=== PATIENT | female | born 1945 | race Caucasian/White ===

== ENCOUNTER 2016-10-16 21:55 | Emergency (ER) | payer OTHER, BC ==
[~2016-10-16] VITALS: Ht 170.2 cm; Wt 81.8 kg
[~2016-10-16 21:55] MED LIST: ASPIRIN81 M1 PO; BUTALB-APAP-CA1 EACH PO; CYMBALTA60 MG PO; LIPITOR20 MG PO; NADOLOL20 MG PO; PREMPRO 0.451 TABLET PO; TOPIRAMATE100 MG PO; TRIAMTERENE-HC1 EAC1 PO
[2016-10-16 22:58] LABS: HEMATOCRIT 32.4 % (36.0-46.0); MCHC 34.9 G/DL (30.0-36.0); MEAN PLAT.VOLUME 9.4 uM^3 (9.5-12.4); PLATELET COUNT 158 K/uL (156-360); RBC DIS.WIDTH-CV 12.6 % (11.8-14.6); RBC DIS.WIDTH-SD 38.6 % (39-53); RED BLOOD COUNT 3.64 M/uL (3.80-5.20); WHITE BLOOD COUNT 13.9 K/uL (4.1-10.2)
[2016-10-16 23:06] LABS: D-DIMER ELISA 0.87 mg/L FEU (< 0.57)
[2016-10-16 23:07] LABS: CHLORIDE 105 mEq/L (99-109); POTASSIUM 3.1 mEq/L (3.7-5.4); SODIUM 140 mEq/L (136-147)
[2016-10-16 23:09] LABS: GLUCOSE 118 mg/dL (70-99)
[2016-10-16 23:11] LABS: ANION GAP 14 MEQ/L (2-14)
[2016-10-16 23:12] LABS: TOTAL BILIRUBIN 0.3 mg/dL (0.0-1.0)
[2016-10-16 23:13] LABS: ALKALINE PHOSPHATASE 106 IU/L (3-129); GFR ESTIMATE (CALCULATED) > 59 mL/min/
[2016-10-16 23:14] LABS: UREA NITROGEN (BUN) 8 mg/dL (9-23)
[2016-10-16 23:16] LABS: LIPASE 20 U/L (1.0-51.0)
[2016-10-16 23:17] LABS: TROP-I INTERPRETATION NEGATIVE; TROPONIN-I < 0.01 ng/mL (0.0-0.30)
[2016-10-16 23:39] LABS: MAGNESIUM 1.4 mg/dL (1.3-2.7)
[2016-10-17 00:02] LABS: BASOPHIL COUNT 0.1 K/uL (0-0.1); EOSINOPHIL (%) 0.9 % (0-5); EOSINOPHIL COUNT 0.1 K/uL (0-0.3); HEMATOLOGY COMMENT 1 SMEAR COMPATIBLE; IMMATURE GRANULOCYTE (%) 3.4 % (0.0-0.7); IMMATURE GRANULOCYTE COUNT 4.7 K/uL; LYMPHOCYTE COUNT 1.8 K/uL (1.0-2.8); MONOCYTE (%) 3.5 % (3-12); MONOCYTE COUNT 0.5 K/uL (0-0.8)
[2016-10-17 00:20] LABS: ADD MIUA? NO; BILIRUBIN NEGATIVE; BLOOD NEGATIVE; COLOR DK YELLOW ((YELLOW)); GLUCOSE (STRIP) NEGATIVE; KETONES NEGATIVE; LEUKOCYTES NEGATIVE; NITRITE NEGATIVE; PH, URINE 6.5 (5-8); PROTEIN (STRIP) NEGATIVE; SPECIFIC GRAVITY 1.012 (1.000-1.030); UCUL ADDED? NO; UROBILINOGEN 0.2 MG/DL (0.2-1.0)
[2016-10-17] MEDS ORDERED: TRAMADOL HCL50 MG PO (01:40)
[2016-10-17 01:57] VITALS: BP 159/86
== END 2016-10-17 01:58 | disposition home or self-care (01) ==
LOC: EME → EDBD 21:55 → EME 10-17 01:58
PROVIDERS: Emergency Medicine
DX: R10.9 Unspecified abdominal pain (principal); E78.6 Lipoprotein deficiency; G20 Parkinson's disease; C25.9 Malignant neoplasm of pancreas, unspecified; D72.829 Elevated white blood cell count, unspecified; D61.9 Aplastic anemia, unspecified; I10 Essential (primary) hypertension; E78.5 Hyperlipidemia, unspecified; Z92.21 Personal history of antineoplastic chemotherapy; Z95.0 Presence of cardiac pacemaker; Z88.8 Allergy status to other drugs, medicaments and biological substances
CPT/HCPCS: 71010; 71275; 74177; 80053; 81003; 83690; 83735; 83880; 84100; 84484; 85025; 85379; 93005; 99281; 99285; J0515; J1200; J2405; J7030

== ENCOUNTER 2016-12-19 03:54 | Observation (INO) | payer OTHER, BC ==
[~2016-12-19] VITALS: Ht 170.2 cm; Wt 82.0 kg
[~2016-12-19 03:54] MED LIST changes: +TRAMADOL HCL50 MG PO
[2016-12-19 04:41] LABS: HEMATOCRIT 29.9 % (36.0-46.0); MCH 31.3 PG (29.0-34.0); MCHC 33.8 G/DL (30.0-36.0); MCV 92.6 FL (83-99); MEAN PLAT.VOLUME 9.6 uM^3 (9.5-12.4); PLATELET COUNT 219 K/uL (156-360); RBC DIS.WIDTH-CV 15.7 % (11.8-14.6); RBC DIS.WIDTH-SD 53.6 % (39-53); RED BLOOD COUNT 3.23 M/uL (3.80-5.20); WHITE BLOOD COUNT 10.7 K/uL (4.1-10.2)
[2016-12-19 04:56] LABS: CHLORIDE 104 mEq/L (99-109); POTASSIUM 3.1 mEq/L (3.7-5.4); SODIUM 136 mEq/L (136-147)
[2016-12-19 04:58] LABS: GLUCOSE 126 mg/dL (70-99)
[2016-12-19 05:00] LABS: ANION GAP 14 MEQ/L (2-14); TOTAL BILIRUBIN 0.4 mg/dL (0.0-1.0)
[2016-12-19 05:02] LABS: ALKALINE PHOSPHATASE 156 IU/L (3-129); GFR ESTIMATE (CALCULATED) > 59 mL/min/
[2016-12-19 05:03] LABS: TROP-I INTERPRETATION NEGATIVE; TROPONIN-I < 0.01 ng/mL (0.0-0.30); UREA NITROGEN (BUN) 6 mg/dL (9-23)
[2016-12-19 05:05] LABS: LIPASE 18 U/L (1.0-51.0)
[2016-12-19] MEDS ORDERED: LEVOTHYROXINE112 MCG PO (08:02)
[2016-12-19] MEDS ORDERED: ENTACAPONE200 MG PO (08:03)
[2016-12-19] MEDS ORDERED: CARBIDOPA-LEVO1 EAC5 PO (08:04)
[2016-12-19] MEDS ORDERED: OMEPRAZOLE40 M1 PO (08:04)
[2016-12-19] MEDS ORDERED: LO-DOSE ASPIRIN81 M1 PO (08:44)
[2016-12-19] MEDS ORDERED: MAGNESIUM OXID500 MG PO (08:45)
[2016-12-19] MEDS ORDERED: KLOR-CON M2020 MEQ PO (08:45)
[2016-12-19] MEDS ORDERED: ATIVAN2 MG PO (08:46)
[2016-12-19] MEDS ORDERED: FLONASE16 G1 BOTH NARES (08:47)
[2016-12-19] MEDS ORDERED: PROZAC20 MG PO (08:48)
[2016-12-19] MEDS ORDERED: AZILECT1 MG PO (08:48)
[2016-12-19] MEDS ORDERED: AVAPRO75 MG PO (08:49)
[2016-12-19] MEDS ORDERED: VITAMIN D-32000 UNI2 PO (08:49)
[2016-12-19] MEDS ORDERED: ZOFRAN8 MG PO (08:50)
[2016-12-19 09:25] VITALS: BP 140/80
[2016-12-19 11:33] VITALS: BP 161/80
[2016-12-19 13:47] LABS: TROP-I INTERPRETATION NEGATIVE; TROPONIN-I 0.02 ng/mL (0.0-0.30)
[2016-12-19 15:34] VITALS: BP 129/68
[2016-12-19 18:53] LABS: HEMATOCRIT 27.4 % (36.0-46.0); MCV 95.8 FL (83-99)
[2016-12-19 19:11] VITALS: BP 128/72
[2016-12-19 21:42] LABS: TROP-I INTERPRETATION NEGATIVE; TROPONIN-I 0.03 ng/mL (0.0-0.30)
[2016-12-20 01:26] VITALS: BP 130/74
[2016-12-20 04:47] VITALS: BP 129/73
[2016-12-20 06:23] LABS: HEMATOCRIT 27.6 % (36.0-46.0); MCH 31.8 PG (29.0-34.0); MCHC 33.3 G/DL (30.0-36.0); MCV 95.5 FL (83-99); MEAN PLAT.VOLUME 9.5 uM^3 (9.5-12.4); PLATELET COUNT 155 K/uL (156-360); RBC DIS.WIDTH-CV 17.1 % (11.8-14.6); RED BLOOD COUNT 2.89 M/uL (3.80-5.20); WHITE BLOOD COUNT 10.2 K/uL (4.1-10.2)
[2016-12-20 06:56] VITALS: BP 159/74
[2016-12-20 06:59] LABS: ALKALINE PHOSPHATASE 139 IU/L (3-129); ANION GAP 7 MEQ/L (2-14); CHLORIDE 105 MEQ/L (99-109); GFR ESTIMATE (CALCULATED) > 59 mL/min/; GLUCOSE 102 mg/dL (70-99); POTASSIUM 3.9 MEQ/L (3.7-5.4); SAMPLE HEMOLYSIS CHECK 0; SAMPLE ICTERIC CHECK 0; SAMPLE LIPEMIA CHECK 0; SODIUM 137 MEQ/L (136-147); TOTAL BILIRUBIN 0.4 MG/DL (0.0-1.0); UREA NITROGEN (BUN) 3 mg/dL (9-23)
== END 2016-12-20 11:16 | disposition home or self-care (01) ==
LOC: EME → EDBD 03:54 → EME 03:54 → EDOF 07:59 → 5WEST 07:59
PROVIDERS: Emergency Medicine; Internal Medicine
DX: R07.9 Chest pain, unspecified (principal); E87.6 Hypokalemia; C25.9 Malignant neoplasm of pancreas, unspecified; C79.9 Secondary malignant neoplasm of unspecified site; R10.13 Epigastric pain; R11.2 Nausea with vomiting, unspecified; Z95.0 Presence of cardiac pacemaker; R01.1 Cardiac murmur, unspecified; D64.9 Anemia, unspecified
CPT/HCPCS: 71010; 71275; 74177; 80053; 83605; 83690; 84484; 85014; 85018; 85027; 93005; 99281; 99285; G0378; J1630; J1650; J2060; J2270; J2405; J3480; J7030

== ENCOUNTER 2017-01-18 20:11 | Inpatient (IN) | payer OTHER, BC ==
[~2017-01-18] VITALS: Ht 170.2 cm; Wt 68.9 kg
[~2017-01-18 20:11] MED LIST changes: +ATIVAN2 MG PO; +AVAPRO75 MG PO; +AZILECT1 MG PO; +CARBIDOPA-LEVO1 EAC5 PO; +ENTACAPONE200 MG PO; +FLONASE16 G1 BOTH NARES; +KLOR-CON M2020 MEQ PO; +LEVOTHYROXINE112 MCG PO; +LO-DOSE ASPIRIN81 M1 PO; +MAGNESIUM OXID500 MG PO; +OMEPRAZOLE40 M1 PO; +PROZAC20 MG PO; +VITAMIN D-32000 UNI2 PO; +ZOFRAN8 MG PO
[2017-01-18 21:02] LABS: HEMATOCRIT 30.2 % (36.0-46.0); MCH 29.5 PG (29.0-34.0); MCHC 32.1 G/DL (30.0-36.0); MCV 91.8 FL (83-99); MEAN PLAT.VOLUME 9.3 uM^3 (9.5-12.4); PLATELET COUNT 525 K/uL (156-360); RBC DIS.WIDTH-CV 16.1 % (11.8-14.6); RBC DIS.WIDTH-SD 54.8 % (39-53); RED BLOOD COUNT 3.29 M/uL (3.80-5.20)
[2017-01-18 21:07] LABS: CHLORIDE 94 mEq/L (99-109); POTASSIUM 2.5 mEq/L (3.7-5.4); SODIUM 134 mEq/L (136-147)
[2017-01-18 21:09] LABS: GLUCOSE 102 mg/dL (70-99)
[2017-01-18 21:10] LABS: ANION GAP 13 MEQ/L (2-14)
[2017-01-18 21:10] LABS: ADD MIUA? YES; BILIRUBIN NEGATIVE; BLOOD NEGATIVE; COLOR AMBER ((YELLOW)); GLUCOSE (STRIP) NEGATIVE; KETONES 5; LEUKOCYTES MODERATE; NITRITE NEGATIVE; PROTEIN (STRIP) NEGATIVE; SPECIFIC GRAVITY 1.011 (1.000-1.030); UROBILINOGEN 0.2 MG/DL (0.2-1.0)
[2017-01-18 21:11] LABS: TOTAL BILIRUBIN 0.6 mg/dL (0.0-1.0)
[2017-01-18 21:12] LABS: ALKALINE PHOSPHATASE 88 IU/L (3-129)
[2017-01-18 21:13] LABS: GFR ESTIMATE (CALCULATED) > 59 mL/min/
[2017-01-18 21:14] LABS: UREA NITROGEN (BUN) 8 mg/dL (9-23)
[2017-01-18 21:16] LABS: LIPASE 18 U/L (1.0-51.0)
[2017-01-18 21:19] LABS: TROP-I INTERPRETATION NEGATIVE; TROPONIN-I 0.04 ng/mL (0.0-0.30)
[2017-01-18 21:22] LABS: BACTERIA 2+ /HPF; EPITHELIAL CELLS RARE /HPF; HYALINE CASTS 0-5 /LPF; MUCUS TRACE /LPF; RED BLOOD CELLS 0-5 /HPF (0-5); UCUL ADDED? YES; WHITE BLOOD CELLS 30-40 /HPF (0-5)
[2017-01-18] MEDS ORDERED: AVAPRO150 MG PO (22:19)
[2017-01-18] MEDS ORDERED: PROTONIX40 MG PO (22:21)
[2017-01-18] MEDS ORDERED: SENOKOT,SENN1 TABLET PO (22:22)
[2017-01-18] MEDS ORDERED: COLACE100 MG PO (22:22)
[2017-01-18] MEDS ORDERED: TYLENOL REGULA325 MG PO (22:23)
[2017-01-18] MEDS ORDERED: ONE-A-DAY ESSE1 EAC1 PO (22:23)
[2017-01-18] MEDS ORDERED: CARAFATE1 GM PO (22:23)
[2017-01-19 02:49] LABS: POINT-OF-CARE METER ID UU14100415
[2017-01-19 02:49] LABS: MAGNESIUM 1.2 mg/dL (1.3-2.7)
[2017-01-19 05:00] LABS: CHLORIDE 99 mEq/L (99-109); POTASSIUM 2.7 mEq/L (3.7-5.4); SODIUM 136 mEq/L (136-147)
[2017-01-19 05:02] LABS: GLUCOSE 101 mg/dL (70-99)
[2017-01-19 05:04] LABS: ANION GAP 14 MEQ/L (2-14)
[2017-01-19 05:06] LABS: GFR ESTIMATE (CALCULATED) > 59 mL/min/
[2017-01-19 05:07] LABS: UREA NITROGEN (BUN) 6 mg/dL (9-23)
[2017-01-19 05:46] VITALS: BP 147/65
[2017-01-19 08:12] VITALS: BP 127/58
[2017-01-19 12:27] VITALS: BP 156/74
[2017-01-19 16:25] VITALS: BP 168/79
[2017-01-19 19:43] VITALS: BP 141/86
[2017-01-19 23:48] VITALS: BP 151/66
[2017-01-20 03:43] VITALS: BP 169/79
[2017-01-20 05:15] LABS: HEMATOCRIT 27.6 % (36.0-46.0); MCH 29.2 PG (29.0-34.0); MCHC 30.8 G/DL (30.0-36.0); MCV 94.8 FL (83-99); PLATELET COUNT 522 K/uL (156-360); RBC DIS.WIDTH-CV 16.7 % (11.8-14.6); RBC DIS.WIDTH-SD 58.6 % (39-53); RED BLOOD COUNT 2.91 M/uL (3.80-5.20); WHITE BLOOD COUNT 15.1 K/uL (4.1-10.2)
[2017-01-20 05:50] LABS: ALKALINE PHOSPHATASE 78 IU/L (3-129); ANION GAP 7 MEQ/L (2-14); CHLORIDE 107 MEQ/L (99-109); GFR ESTIMATE (CALCULATED) > 59 mL/min/; GLUCOSE 92 mg/dL (70-99); MAGNESIUM 2.1 mg/dl (1.3-2.7); SAMPLE HEMOLYSIS CHECK 0; SAMPLE ICTERIC CHECK 0; SAMPLE LIPEMIA CHECK 0; SODIUM 140 MEQ/L (136-147); TOTAL BILIRUBIN 0.4 MG/DL (0.0-1.0); UREA NITROGEN (BUN) 3 mg/dL (9-23)
[2017-01-20 05:51] LABS: POTASSIUM 4.6 MEQ/L (3.7-5.4)
[2017-01-20 07:40] VITALS: BP 119/56
[2017-01-20 09:49] LABS: INTERNAL CONTROL VALID? YES
[2017-01-20 11:38] VITALS: BP 127/60
[2017-01-20] MEDS ORDERED: POTASSIUM20 MEQ/11 PO (12:27)
[2017-01-20] MEDS ORDERED: CEFDINIR300 MG PO (12:27)
[2017-01-20] MEDS ORDERED: MAGNESIUM400 M1 PO (12:27)
== END 2017-01-20 14:09 | disposition home or self-care (01) | DRG 872 ==
LOC: EME 20:11 → EDOF 01-19 02:17 → 3EAST 01-19 05:11
PROVIDERS: Emergency Medicine; Internal Medicine
DX: A41.9 Sepsis, unspecified organism (principal); N39.0 Urinary tract infection, site not specified; R55 Syncope and collapse; F32.9 Major depressive disorder, single episode, unspecified; E78.5 Hyperlipidemia, unspecified; I10 Essential (primary) hypertension; G89.29 Other chronic pain; K21.9 Gastro-esophageal reflux disease without esophagitis; R56.9 Unspecified convulsions; C25.9 Malignant neoplasm of pancreas, unspecified; G20 Parkinson's disease; D64.9 Anemia, unspecified; E87.6 Hypokalemia; I49.5 Sick sinus syndrome; E83.42 Hypomagnesemia; I25.10 Atherosclerotic heart disease of native coronary artery without angina pectoris; E87.8 Other disorders of electrolyte and fluid balance, not elsewhere classified; G43.909 Migraine, unspecified, not intractable, without status migrainosus; B96.1 Klebsiella pneumoniae [K. pneumoniae] as the cause of diseases classified elsewhere; E86.0 Dehydration; Z85.9 Personal history of malignant neoplasm, unspecified; Z90.49 Acquired absence of other specified parts of digestive tract; Z85.850 Personal history of malignant neoplasm of thyroid; Z95.0 Presence of cardiac pacemaker; Z90.81 Acquired absence of spleen; Z85.07 Personal history of malignant neoplasm of pancreas
CPT/HCPCS: 71010; 80048; 80053; 81003; 82948; 83690; 83735; 84484; 85027; 87077; 87086; 87186; 87449; 93005; 99281; 99285; J0696; J1644; J1956; J2405; J3475; J3480; J7050

== ENCOUNTER 2017-01-21 15:10 | Emergency (ER) | payer OTHER, BC ==
[~2017-01-21] VITALS: Ht 170.2 cm; Wt 67.7 kg
[~2017-01-21 15:10] MED LIST changes: +AVAPRO150 MG PO; +CARAFATE1 GM PO; +CEFDINIR300 MG PO; +COLACE100 MG PO; +MAGNESIUM400 M1 PO; +ONE-A-DAY ESSE1 EAC1 PO; +POTASSIUM20 MEQ/11 PO; +PROTONIX40 MG PO; +SENOKOT,SENN1 TABLET PO; +TYLENOL REGULA325 MG PO
[2017-01-21 15:46] LABS: BASOPHIL COUNT 0.1 K/uL (0-0.1); EOSINOPHIL (%) 0.3 % (0-5); EOSINOPHIL COUNT 0.1 K/uL (0-0.3); HEMATOCRIT 30.4 % (36.0-46.0); IMMATURE GRANULOCYTE (%) 0.6 % (0.0-0.7); IMMATURE GRANULOCYTE COUNT 0.1 K/uL; INSTRUMENT ABS NEUTROPHIL CT 16.7 K/uL; LYMPHOCYTE COUNT 1.3 K/uL (1.0-2.8); MCH 30.3 PG (29.0-34.0); MCHC 32.2 G/DL (30.0-36.0); MCV 94.1 FL (83-99); MEAN PLAT.VOLUME 9.6 uM^3 (9.5-12.4); MONOCYTE (%) 6.7 % (3-12); MONOCYTE COUNT 1.3 K/uL (0-0.8); NEUTROPHIL (%) 85.6 % (45-76); NEUTROPHIL COUNT 16.7 K/uL (1.8-6.4); PLATELET COUNT 633 K/uL (156-360); RBC DIS.WIDTH-CV 16.3 % (11.8-14.6); RBC DIS.WIDTH-SD 56.2 % (39-53); RED BLOOD COUNT 3.23 M/uL (3.80-5.20); WHITE BLOOD COUNT 19.5 K/uL (4.1-10.2)
[2017-01-21 15:55] LABS: CHLORIDE 103 mEq/L (99-109); POTASSIUM 4.4 mEq/L (3.7-5.4); SODIUM 134 mEq/L (136-147)
[2017-01-21 15:58] LABS: GLUCOSE 111 mg/dL (70-99)
[2017-01-21 15:59] LABS: ANION GAP 11 MEQ/L (2-14)
[2017-01-21 16:00] LABS: TOTAL BILIRUBIN 0.4 mg/dL (0.0-1.0)
[2017-01-21 16:01] LABS: ALKALINE PHOSPHATASE 106 IU/L (3-129)
[2017-01-21 16:02] LABS: GFR ESTIMATE (CALCULATED) > 59 mL/min/
[2017-01-21 16:03] LABS: UREA NITROGEN (BUN) 7 mg/dL (9-23)
[2017-01-21 16:05] LABS: LIPASE 32 U/L (1.0-51.0)
[2017-01-21 16:10] LABS: TROP-I INTERPRETATION NEGATIVE; TROPONIN-I 0.03 ng/mL (0.0-0.30)
[2017-01-21 21:56] VITALS: BP 144/70
== END 2017-01-21 21:56 | disposition short-term general hospital (02) ==
LOC: EME 15:10
PROVIDERS: Emergency Medicine
DX: T81.89XA Other complications of procedures, not elsewhere classified, initial encounter (principal); D72.829 Elevated white blood cell count, unspecified; R10.13 Epigastric pain; E78.5 Hyperlipidemia, unspecified; I10 Essential (primary) hypertension; Z85.07 Personal history of malignant neoplasm of pancreas; G20 Parkinson's disease; K21.9 Gastro-esophageal reflux disease without esophagitis
CPT/HCPCS: 71010; 74177; 80053; 81003; 83690; 84484; 85025; 93005; 99281; 99285; J2543

== ENCOUNTER 2017-02-04 00:28 | Inpatient (IN) | payer OTHER, BC ==
[~2017-02-04] VITALS: Ht 170.2 cm; Wt 63.1 kg
[~2017-02-04 00:28] MED LIST changes: +AUGMENTIN875 MG PO
[2017-02-04 00:54] LABS: POINT-OF-CARE METER ID UU13113702
[2017-02-04 01:11] LABS: BASOPHIL COUNT 0.1 K/uL (0-0.1); EOSINOPHIL (%) 0.5 % (0-5); EOSINOPHIL COUNT 0.1 K/uL (0-0.3); HEMATOCRIT 35.9 % (36.0-46.0); IMMATURE GRANULOCYTE (%) 0.4 % (0.0-0.7); INSTRUMENT ABS NEUTROPHIL CT 8.7 K/uL; LYMPHOCYTE COUNT 1.2 K/uL (1.0-2.8); MCH 30.4 PG (29.0-34.0); MCHC 32.3 G/DL (30.0-36.0); MEAN PLAT.VOLUME 9.4 uM^3 (9.5-12.4); MONOCYTE COUNT 0.8 K/uL (0-0.8); NEUTROPHIL (%) 80.9 % (45-76); NEUTROPHIL COUNT 8.7 K/uL (1.8-6.4); PLATELET COUNT 618 K/uL (156-360); RBC DIS.WIDTH-CV 15.8 % (11.8-14.6); RBC DIS.WIDTH-SD 54.4 % (39-53); RED BLOOD COUNT 3.82 M/uL (3.80-5.20); WHITE BLOOD COUNT 10.8 K/uL (4.1-10.2)
[2017-02-04 01:27] LABS: CHLORIDE 104 mEq/L (99-109); POTASSIUM 2.9 mEq/L (3.7-5.4); SODIUM 141 mEq/L (136-147)
[2017-02-04 01:29] LABS: GLUCOSE 126 mg/dL (70-99)
[2017-02-04 01:33] LABS: GFR ESTIMATE (CALCULATED) > 59 mL/min/; TOTAL BILIRUBIN 0.3 mg/dL (0.0-1.0)
[2017-02-04 01:34] LABS: ALKALINE PHOSPHATASE 94 IU/L (3-129); UREA NITROGEN (BUN) 7 mg/dL (9-23)
[2017-02-04 01:35] LABS: TROP-I INTERPRETATION NEGATIVE; TROPONIN-I 0.02 ng/mL (0.0-0.30)
[2017-02-04 01:37] LABS: DIRECT BILIRUBIN 0.2 mg/dL (0.0-0.3)
[2017-02-04 02:58] LABS: ADD MIUA? NO; BILIRUBIN NEGATIVE; BLOOD NEGATIVE; COLOR YELLOW ((YELLOW)); GLUCOSE (STRIP) NEGATIVE; KETONES 5; LEUKOCYTES NEGATIVE; NITRITE NEGATIVE; PROTEIN (STRIP) 30; SPECIFIC GRAVITY 1.011 (1.000-1.030); UCUL ADDED? NO; UROBILINOGEN 0.2 MG/DL (0.2-1.0)
[2017-02-04 04:13] VITALS: BP 171/78
[2017-02-04 07:04] VITALS: BP 169/79
[2017-02-04 08:06] LABS: HEMATOCRIT 29.2 % (36.0-46.0); MCH 30.5 PG (29.0-34.0); MCHC 32.2 G/DL (30.0-36.0); MCV 94.8 FL (83-99); MEAN PLAT.VOLUME 9.5 uM^3 (9.5-12.4); PLATELET COUNT 515 K/uL (156-360); RBC DIS.WIDTH-CV 15.8 % (11.8-14.6); RBC DIS.WIDTH-SD 54.7 % (39-53); RED BLOOD COUNT 3.08 M/uL (3.80-5.20); WHITE BLOOD COUNT 7.6 K/uL (4.1-10.2)
[2017-02-04 08:09] LABS: ALKALINE PHOSPHATASE 74 IU/L (3-129); ANION GAP 9 MEQ/L (2-14); CHLORIDE 107 MEQ/L (99-109); GFR ESTIMATE (CALCULATED) > 59 mL/min/; GLUCOSE 96 mg/dL (70-99); POTASSIUM 2.6 MEQ/L (3.7-5.4); SAMPLE HEMOLYSIS CHECK 0; SAMPLE ICTERIC CHECK 0; SAMPLE LIPEMIA CHECK 0; SODIUM 143 MEQ/L (136-147); TOTAL BILIRUBIN 0.3 MG/DL (0.0-1.0); UREA NITROGEN (BUN) 6 mg/dL (9-23)
[2017-02-04 09:09] LABS: MAGNESIUM 1.4 mg/dl (1.3-2.7)
[2017-02-04 10:08] LABS: CHLORIDE 108 mEq/L (99-109); POTASSIUM 2.8 mEq/L (3.7-5.4); SODIUM 142 mEq/L (136-147)
[2017-02-04 10:09] LABS: MAGNESIUM 1.4 mg/dL (1.3-2.7)
[2017-02-04 10:10] LABS: GLUCOSE 115 mg/dL (70-99)
[2017-02-04 10:11] LABS: ANION GAP 10 MEQ/L (2-14)
[2017-02-04 10:14] LABS: GFR ESTIMATE (CALCULATED) > 59 mL/min/
[2017-02-04 10:15] LABS: UREA NITROGEN (BUN) 5 mg/dL (9-23)
[2017-02-04 11:01] VITALS: BP 162/75
[2017-02-04 11:08] VITALS: BP 108/60
[2017-02-04 15:07] LABS: CHLORIDE 107 mEq/L (99-109); POTASSIUM 2.9 mEq/L (3.7-5.4); SODIUM 140 mEq/L (136-147)
[2017-02-04 15:09] LABS: GLUCOSE 103 mg/dL (70-99)
[2017-02-04 15:10] LABS: ANION GAP 10 MEQ/L (2-14)
[2017-02-04 15:13] LABS: GFR ESTIMATE (CALCULATED) > 59 mL/min/
[2017-02-04 15:14] LABS: UREA NITROGEN (BUN) 4 mg/dL (9-23)
[2017-02-04 15:31] VITALS: BP 91/55
== END 2017-02-04 16:50 | disposition home health service (06) | DRG 640 ==
LOC: EME 00:28 → EDOF 02:32 → 2EAST 02:48 → EDOF 02:48 → 2EAST 03:50
PROVIDERS: Emergency Medicine; Internal Medicine
DX: E87.6 Hypokalemia (principal); E86.0 Dehydration; R55 Syncope and collapse; I95.9 Hypotension, unspecified; I10 Essential (primary) hypertension; E78.5 Hyperlipidemia, unspecified; K21.9 Gastro-esophageal reflux disease without esophagitis; G20 Parkinson's disease; T81.4XXA Infection following a procedure, initial encounter; K65.1 Peritoneal abscess; Z85.07 Personal history of malignant neoplasm of pancreas; Z85.850 Personal history of malignant neoplasm of thyroid; Z95.0 Presence of cardiac pacemaker; Z79.82 Long term (current) use of aspirin
CPT/HCPCS: 74176; 80048; 80048 91; 80053; 80076; 81003; 82948; 83605; 83735; 84484; 85025; 85027; 93005; 99281; 99284; J1644; J3480; J7030; Q0177

== ENCOUNTER 2017-02-11 06:14 | Emergency (ER) | payer OTHER, BC ==
[~2017-02-11] VITALS: Ht 170.2 cm; Wt 63.6 kg
[2017-02-11 07:06] LABS: BASOPHIL COUNT 0.1 K/uL (0-0.1); EOSINOPHIL (%) 0.3 % (0-5); HEMATOCRIT 35.3 % (36.0-46.0); IMMATURE GRANULOCYTE (%) 0.6 % (0.0-0.7); IMMATURE GRANULOCYTE COUNT 0.1 K/uL; INSTRUMENT ABS NEUTROPHIL CT 8.6 K/uL; LYMPHOCYTE COUNT 1.1 K/uL (1.0-2.8); MCH 30.3 PG (29.0-34.0); MCHC 32.6 G/DL (30.0-36.0); MCV 93.1 FL (83-99); MEAN PLAT.VOLUME 9.3 uM^3 (9.5-12.4); MONOCYTE (%) 7.9 % (3-12); MONOCYTE COUNT 0.9 K/uL (0-0.8); NEUTROPHIL (%) 80.1 % (45-76); NEUTROPHIL COUNT 8.6 K/uL (1.8-6.4); PLATELET COUNT 459 K/uL (156-360); RBC DIS.WIDTH-CV 15.8 % (11.8-14.6); RBC DIS.WIDTH-SD 54.2 % (39-53); RED BLOOD COUNT 3.79 M/uL (3.80-5.20); WHITE BLOOD COUNT 10.7 K/uL (4.1-10.2)
[2017-02-11 07:38] LABS: TROP-I INTERPRETATION NEGATIVE; TROPONIN-I < 0.01 ng/mL (0.0-0.30)
[2017-02-11 07:45] LABS: ANION GAP 14 MEQ/L (2-14); CHLORIDE 96 MEQ/L (99-109); CREATINE KINASE 18 IU/L (1-294); GFR ESTIMATE (CALCULATED) > 59 mL/min/; GLUCOSE 114 mg/dL (70-99); MAGNESIUM 1.8 mg/dl (1.3-2.7); POTASSIUM 3.6 MEQ/L (3.7-5.4); SAMPLE HEMOLYSIS CHECK 0; SAMPLE ICTERIC CHECK 0; SAMPLE LIPEMIA CHECK 0; SODIUM 135 MEQ/L (136-147); UREA NITROGEN (BUN) 6 mg/dL (9-23)
[2017-02-11 09:45] VITALS: BP 135/73
== END 2017-02-11 10:17 | disposition home or self-care (01) ==
LOC: EME 06:14
PROVIDERS: Emergency Medicine
DX: E86.0 Dehydration (principal); R07.89 Other chest pain; R06.02 Shortness of breath; R10.9 Unspecified abdominal pain; Z85.07 Personal history of malignant neoplasm of pancreas; Z85.850 Personal history of malignant neoplasm of thyroid; K21.9 Gastro-esophageal reflux disease without esophagitis; G20 Parkinson's disease; I10 Essential (primary) hypertension; E78.5 Hyperlipidemia, unspecified; Z95.0 Presence of cardiac pacemaker
CPT/HCPCS: 71010; 80048; 82550; 83735; 84484; 85025; 93005; 99281; 99285; J7030

== ENCOUNTER 2017-03-26 20:41 | Observation (INO) | payer OTHER, BC ==
[~2017-03-26] VITALS: Ht 170.2 cm; Wt 50.0 kg
[2017-03-26 22:38] LABS: BASOPHIL COUNT 0.1 K/uL (0-0.1); EOSINOPHIL (%) 0.9 % (0-5); EOSINOPHIL COUNT 0.1 K/uL (0-0.3); HEMATOCRIT 38.5 % (36.0-46.0); IMMATURE GRANULOCYTE (%) 0.4 % (0.0-0.7); INSTRUMENT ABS NEUTROPHIL CT 5.4 K/uL; LYMPHOCYTE COUNT 2.8 K/uL (1.0-2.8); MCH 30.1 PG (29.0-34.0); MCV 88.5 FL (83-99); MEAN PLAT.VOLUME 10.4 uM^3 (9.5-12.4); MONOCYTE (%) 8.3 % (3-12); MONOCYTE COUNT 0.8 K/uL (0-0.8); NEUTROPHIL (%) 59.3 % (45-76); NEUTROPHIL COUNT 5.4 K/uL (1.8-6.4); PLATELET COUNT 411 K/uL (156-360); RBC DIS.WIDTH-CV 14.1 % (11.8-14.6); RBC DIS.WIDTH-SD 45.3 % (39-53); RED BLOOD COUNT 4.35 M/uL (3.80-5.20); WHITE BLOOD COUNT 9.1 K/uL (4.1-10.2)
[2017-03-26 22:58] LABS: TROP-I INTERPRETATION NEGATIVE; TROPONIN-I 0.01 ng/mL (0.0-0.30)
[2017-03-26 23:02] LABS: CHLORIDE 98 mEq/L (99-109); POTASSIUM 3.7 mEq/L (3.7-5.4); SODIUM 138 mEq/L (136-147)
[2017-03-26 23:03] LABS: MAGNESIUM 1.8 mg/dL (1.3-2.7)
[2017-03-26 23:37] LABS: GLUCOSE 96 mg/dL (70-99)
[2017-03-26 23:38] LABS: ANION GAP 13 MEQ/L (2-14)
[2017-03-26 23:40] LABS: GFR ESTIMATE (CALCULATED) > 59 mL/min/
[2017-03-26 23:41] LABS: UREA NITROGEN (BUN) 9 mg/dL (9-23)
[2017-03-27 01:56] LABS: ADD MIUA? NO; BILIRUBIN NEGATIVE; BLOOD NEGATIVE; COLOR YELLOW ((YELLOW)); GLUCOSE (STRIP) NEGATIVE; KETONES 5; LEUKOCYTES NEGATIVE; NITRITE NEGATIVE; PROTEIN (STRIP) NEGATIVE; SPECIFIC GRAVITY 1.008 (1.000-1.030); UCUL ADDED? NO; UROBILINOGEN 0.2 MG/DL (0.2-1.0)
[2017-03-27] MEDS ORDERED: OMEPRAZOLE40 M1 PO (04:54)
[2017-03-27] MEDS ORDERED: FLORINEF ACETA0.1 MG PO (04:55)
[2017-03-27] MEDS ORDERED: MAGNESIUM400 M1 PO (04:56)
[2017-03-27 08:09] LABS: HEMATOCRIT 36.5 % (36.0-46.0); MCH 29.9 PG (29.0-34.0); MCHC 33.4 G/DL (30.0-36.0); MCV 89.5 FL (83-99); MEAN PLAT.VOLUME 9.7 uM^3 (9.5-12.4); PLATELET COUNT 393 K/uL (156-360); RBC DIS.WIDTH-CV 14.4 % (11.8-14.6); RBC DIS.WIDTH-SD 47.3 % (39-53); RED BLOOD COUNT 4.08 M/uL (3.80-5.20); WHITE BLOOD COUNT 8.7 K/uL (4.1-10.2)
[2017-03-27] MEDS ORDERED: COLACE100 MG PO (08:19)
[2017-03-27 08:27] LABS: CHLORIDE 101 mEq/L (99-109); POTASSIUM 3.9 mEq/L (3.7-5.4); SODIUM 138 mEq/L (136-147)
[2017-03-27 08:29] LABS: GLUCOSE 103 mg/dL (70-99)
[2017-03-27 08:30] LABS: ANION GAP 9 MEQ/L (2-14)
[2017-03-27 08:31] LABS: TOTAL BILIRUBIN 0.4 mg/dL (0.0-1.0)
[2017-03-27 08:32] LABS: ALKALINE PHOSPHATASE 59 IU/L (3-129)
[2017-03-27 08:33] LABS: GFR ESTIMATE (CALCULATED) > 59 mL/min/
[2017-03-27 08:34] LABS: UREA NITROGEN (BUN) 6 mg/dL (9-23)
[2017-03-27 11:10] VITALS: BP 166/94
== END 2017-03-27 13:24 | disposition home or self-care (01) ==
LOC: EME → EDBD 20:41 → EDOF 03-27 04:22
PROVIDERS: Emergency Medicine; Internal Medicine
DX: R50.9 Fever, unspecified (principal); R00.0 Tachycardia, unspecified; R20.0 Anesthesia of skin; I95.1 Orthostatic hypotension; G20 Parkinson's disease; Z85.07 Personal history of malignant neoplasm of pancreas; Z92.21 Personal history of antineoplastic chemotherapy; Z90.411 Acquired partial absence of pancreas; Z90.81 Acquired absence of spleen; I10 Essential (primary) hypertension; E78.5 Hyperlipidemia, unspecified; I49.5 Sick sinus syndrome; Z95.0 Presence of cardiac pacemaker; Z88.8 Allergy status to other drugs, medicaments and biological substances
CPT/HCPCS: 70450; 71020; 74177; 80048; 80053; 81003; 83605; 83735; 84484; 85025; 85027; 87040; 93005; 99281; 99285; G0378; J1644; J2405; J7030

== ENCOUNTER 2017-05-30 12:17 | Emergency (ER) | payer OTHER, BC ==
[~2017-05-30] VITALS: Ht 170.2 cm; Wt 54.7 kg
[~2017-05-30 12:17] MED LIST changes: +FLORINEF ACETA0.1 MG PO
[2017-05-30 12:48] LABS: HEMATOCRIT 37.7 % (36.0-46.0); MCH 31.9 PG (29.0-34.0); MCHC 35.3 G/DL (30.0-36.0); MCV 90.4 FL (83-99); MEAN PLAT.VOLUME 9.3 uM^3 (9.5-12.4); PLATELET COUNT 400 K/uL (156-360); RBC DIS.WIDTH-SD 46.9 % (39-53); RED BLOOD COUNT 4.17 M/uL (3.80-5.20); WHITE BLOOD COUNT 10.5 K/uL (4.1-10.2)
[2017-05-30 12:55] LABS: CHLORIDE 101 mEq/L (99-109); POTASSIUM 3.8 mEq/L (3.7-5.4); SODIUM 138 mEq/L (136-147)
[2017-05-30 12:57] LABS: GLUCOSE 105 mg/dL (70-99)
[2017-05-30 12:58] LABS: ANION GAP 11 MEQ/L (2-14)
[2017-05-30 12:59] LABS: TOTAL BILIRUBIN 0.6 mg/dL (0.0-1.0)
[2017-05-30 13:01] LABS: ALKALINE PHOSPHATASE 76 IU/L (3-129); GFR ESTIMATE (CALCULATED) > 59 mL/min/
[2017-05-30 13:02] LABS: UREA NITROGEN (BUN) 12 mg/dL (9-23)
[2017-05-30 13:04] LABS: LIPASE 5 U/L (1.0-51.0)
[2017-05-30 13:28] LABS: TROP-I INTERPRETATION NEGATIVE; TROPONIN-I 0.01 ng/mL (0.0-0.30)
[2017-05-30 14:01] LABS: ADD MIUA? YES; BILIRUBIN NEGATIVE; BLOOD NEGATIVE; COLOR YELLOW ((YELLOW)); GLUCOSE (STRIP) NEGATIVE; KETONES 5; LEUKOCYTES TRACE; NITRITE NEGATIVE; PROTEIN (STRIP) 30; SPECIFIC GRAVITY 1.021 (1.000-1.030)
[2017-05-30 14:07] LABS: BACTERIA RARE /HPF; CALCIUM OXALATE CRYSTALS 3+ /HPF; EPITHELIAL CELLS RARE /HPF; MUCUS 2+ /LPF; RED BLOOD CELLS 0-5 /HPF (0-5); UCUL ADDED? YES
[2017-05-30] MEDS ORDERED: MIRALAX17 GM PO (14:20)
[2017-05-30] MEDS ORDERED: FLAGYL500 MG PO (14:20)
[2017-05-30] MEDS ORDERED: CIPRO500 MG PO (14:20)
[2017-05-30 14:40] VITALS: BP 163/87
== END 2017-05-30 14:41 | disposition home or self-care (01) ==
LOC: EME 12:17
PROVIDERS: Emergency Medicine
DX: K52.9 Noninfective gastroenteritis and colitis, unspecified (principal); K21.9 Gastro-esophageal reflux disease without esophagitis; J45.909 Unspecified asthma, uncomplicated; E78.5 Hyperlipidemia, unspecified; I10 Essential (primary) hypertension; G20 Parkinson's disease; Z85.850 Personal history of malignant neoplasm of thyroid; Z95.0 Presence of cardiac pacemaker; Z79.82 Long term (current) use of aspirin; Z86.73 Personal history of transient ischemic attack (TIA), and cerebral infarction without residual deficits; Z90.411 Acquired partial absence of pancreas; Z90.81 Acquired absence of spleen
CPT/HCPCS: 71020; 74176; 80053; 81003; 83690; 84484; 85027; 87077; 87086; 87186; 93005; 99281; 99284